=== PATIENT | male | born 1950 | race Asian ===

== ENCOUNTER 2021-07-21 09:30 | Day surgery (SDC) | payer OTHER, MEDICARE ==
[2021-07-18 16:09] VITALS: BMI 22.9
[2021-07-21 10:19] VITALS: TEMP 97.9
[2021-07-21 12:01] VITALS: BP 114/70; PULSE 66
== END 2021-07-21 12:10 | disposition home or self-care (01) ==
LOC: FASU-ENDO 09:30
PROVIDERS: ATTEND Internal Medicine Gastroenterology
PROC: 0DBM8ZX Excision of Descending Colon, Via Natural or Artificial Opening Endoscopic, Diagnostic (ICD-10-PCS; principal; 2021-07-21 11:11)
DX: Z86.010 Personal history of colon polyps (principal); Z83.71 Family history of colonic polyps; D12.4 Benign neoplasm of descending colon
CPT/HCPCS: 82962; 88305-TC